=== PATIENT | female | born 1960 ===

== ENCOUNTER 2016-10-07 07:02 | Day surgery (SDC) | payer OTHER ==
[2016-10-07] MEDS ORDERED: Lactated Ringer's 500 ML IV ONE (07:38)
[2016-10-07] MEDS ORDERED: Midazolam 2 MG/2 ML VIAL ONE (07:47)
[2016-10-07] MEDS ORDERED: Propofol 10 mg/ml Inj (20 ML) ONE (07:47)
[2016-10-07 07:48] VITALS: BMI 32.5
[2016-10-07 08:57] VITALS: O2SAT 100
[2016-10-07 09:17] VITALS: BP 149/96; PULSE 78; RESP 18; TEMP 97.5
== END 2016-10-07 11:49 | disposition home or self-care (01) ==
LOC: H.ENDO 07:02
PROVIDERS: ATTEND Internal Medicine Gastroenterology
DX: K29.50 Unspecified chronic gastritis without bleeding (principal); K21.0 Gastro-esophageal reflux disease with esophagitis; K44.9 Diaphragmatic hernia without obstruction or gangrene

== ENCOUNTER 2016-10-13 15:32 | Observation (INO) | payer OTHER ==
[2016-10-13 15:33] VITALS: BMI 32.5
[2016-10-13 16:02] VITALS: O2SAT 98
[2016-10-13] MEDS ORDERED: Sodium Chloride 0.9% 1,000 ML IV STA (16:21)
--- NOTE | 2016-10-13 16:31 | ED PDOC ---
HPI: General Adult Time Seen by Provider: 10/13/16 16:11 Chief Complaint (Nursing): GI Problem History Per: Patient Additional Complaint(s): Pt. states since this morning she's had non-bloody/non-bilious vomiting (6 episodes) and non-bloody watery diarrhea (3 episodes) associated with epigastric and LUQ pain. Pt. states these symptoms are consistent with her IBS. She took her Prevacid without any relief. Of note, pt. states she saw Dr. Khan , GI, 2 weeks ago when she had an endoscopy but is still uncertain of the results. She has an appointment with Dr. Khan tomorrow. Denies fever, sick contacts, recent travel, hematemesis, hematochezia, BRBPR, chest pain, SOB. Past Medical History Reviewed: Historical Data, Nursing Documentation, Vital Signs Vital Signs: Last Vital Signs Temp 98.5 F 10/13/16 16:00 Pulse 105 H 10/13/16 16:00 Resp 18 10/13/16 16:00 BP 156/97 H 10/13/16 16:00 Pulse Ox 98 10/13/16 16:32 - Medical History PMH: Anxiety, Arthritis, Asthma, Bronchitis, COPD, Fibromyalgia, Migraine, Seizures Denies: HIV, Chronic Kidney Disease - Surgical History Surgical History: Tonsillectomy - Family History Family History: States: No Known Family Hx - Home Medications Home Medications: Ambulatory Orders Medication Instructions Recorded Fluticasone Furoate [Arnuity 200 mcg IH QAM 10/07/16 Ellipta] Fluticasone/Vilanterol [Breo 1 each IH DAILY 10/07/16 Ellipta 200-25 Mcg INH] Montelukast [Singulair] 10 mg PO HS 10/07/16 Tiotropium [place] Inhaler 1 puff INH DAILY 10/07/16 [Spiriva Inhalation Handihaler Device] - Allergies Allergies/Adverse Reactions: Allergies Allergy/AdvReac Type Severity Reaction Status Date / Time azelastine Allergy ANGIOEDEMA Verified 10/13/16 15:59 dexamethasone [From Decadron] Allergy SWELLING Verified 10/13/16 15:59 dexamethasone sod phosphate Allergy SWELLING Verified 10/13/16 15:59 [From Decadron] levofloxacin [From Levaquin] AdvReac DIARRHEA Verified 10/13/16 15:59 Review of Systems ROS Statement: Except As Marked, All Systems Reviewed And Found Negative Gastrointestinal: Positive for: Nausea, Vomiting, Abdominal Pain, Diarrhea Physical Exam - Reviewed Nursing Documentation Reviewed: Yes Vital Signs Reviewed: Yes - Physical Exam Appears: Positive for: Well, Non-toxic, No Acute Distress Head Exam: Positive for: ATRAUMATIC, NORMAL INSPECTION, NORMOCEPHALIC Skin: Positive for: Normal Color, Warm. Negative for: Rash Eye Exam: Positive for: EOMI, Normal appearance, PERRL ENT: Positive for: Normal ENT Inspection Neck: Positive for: Normal, Painless ROM Cardiovascular/Chest: Positive for: Regular Rate, Rhythm Respiratory: Positive for: CNT, Normal Breath Sounds Gastrointestinal/Abdominal: Positive for: Normal Exam, Bowel Sounds, Soft, Tenderness (epigastric and LUQ tenderness) Back: Positive for: Normal Inspection Extremity: Positive for: Normal ROM Neurologic/Psych: Positive for: Alert, Oriented - Laboratory Results Result Diagrams: 10/13/16 16:59 10/13/16 16:59 - ECG O2 Sat by Pulse Oximetry: 98 ED OBSERVATION Discharge: Yes Date of observation admission: 10/13/16 Time of observation admission: 16:32 - Observation admission statement Patient is being placed in observation because:: Abd Pain - Progress Note Progress Note: 10/13/16 16:32 Labs ordered. Pepcid 20mg IV, bentyl 20mg PO, zofran 4mg IV, IV NS bolus given. 10/13/16 18:54 CT abd/pelvis w/ IV contrast: Question mild small bowel wall thickening in the left upper quadrant, possibly enteritis. Urine culture sent. Mild to moderate constipation. 10/13/16 19:03 Case d/w Dr. Lorenzo, covering for Dr. Khan, who reviewed CT and labs as well and recommends outpt f/u with Dr. Khan tomorrow as previously scheduled and Miralax. Also states antibiotics are not necessary. Pt. informed of results and instructed to f/u as such. Reports feeling much better. Disposition - Clinical Impression Clinical Impression: Gastroenteritis, Constipation - Patient ED Disposition Is Patient to be Admitted: No - Disposition Disposition: Routine/Home Disposition Time: 19:05 Condition: IMPROVED
[2016-10-13 17:04] LABS: BASO % 0.2 % (0.0-2.0); EOS # 0.1 K/uL (0.0-0.7); EOS % 0.7 % (0.0-4.0); HEMOGLOBIN 14.6 g/dL (12.0-16.0); LYMPH # 0.8 K/uL (1.0-4.3); LYMPH % 9.1 % (20.0-40.0); MEAN CELL VOLUME 85.9 fl (81.0-99.0); MEAN CORPUSCULAR HEMOGLOBIN 28.1 pg (27.0-31.0); MEAN CORPUSCULAR HGB CONC 32.7 g/dL (33.0-37.0); MEAN PLATELET VOLUME 7.4 fl (7.2-11.7); MONO # 0.4 K/uL (0.0-0.8); NEUT # 7.1 K/uL (1.8-7.0); NRBC % 0.1 % (0.0-0.0); PLATELET COUNT 242 K/uL (130-400); RED CELL DISTRIBUTION WIDTH 13.4 % (11.5-14.5); WHITE BLOOD COUNT 8.4 K/uL (4.8-10.8)
[2016-10-13 17:11] LABS: SQUAMOUS EPITHIAL 3 /hpf (0-5); URINE BACTERIA RARE (<OCC); URINE BILIRUBIN NEGATIVE (NEGATIVE); URINE BLOOD NEGATIVE (NEGATIVE); URINE CLARITY SLIGHTY-CLOUDY (Clear); URINE COLOR YELLOW (YELLOW); URINE GLUCOSE (UA) NEG (Normal); URINE LEUKOCYTE ESTERASE SMALL Leu/uL (Negative); URINE NITRATE NEGATIVE (NEGATIVE); URINE PROTEIN NEGATIVE (NEGATIVE); URINE UROBILINOGEN 0.2-1.0 mg/dL (0.2-1.0)
[2016-10-13 17:24] LABS: ALB/GLOB RATIO 1.5 (1.0-2.1); ALBUMIN 4.7 g/dL (3.5-5.0); ALT/SGPT 46 U/L (9-52); AST/SGOT 25 U/L (14-36); BLOOD UREA NITROGEN 21 mg/dl (7-17); CALCIUM 9.5 mg/dL (8.4-10.2); GFR AFRICAN-AMERICAN > 60; GFR NON-AFRICAN AMERICAN > 60; LIPASE 156 U/L (23-300)
[2016-10-13] MEDS ORDERED: Iohexol 300 100 ML IJ ONE (17:33)
[2016-10-13] MEDS ORDERED: Sodium Chloride 0.9% 50 ML IV ONE (17:34)
[2016-10-13 18:26] LABS: ANISOCYTOSIS SLIGHT; LARGE PLATELETS PRESENT; LYMPHOCYTE 12 % (20-50); MONOCYTE 6 % (0-10); NEUTROPHIL 82 % (42-75); PLATELET ESTIMATE NORMAL (NORMAL); TOTAL CELLS COUNTED 100
--- NOTE | 2016-10-13 18:42 | CT ---
PROCEDURE: CT Abdomen and Pelvis with contrast HISTORY: LUQ and epigastric pain; vomiting, diarrhea COMPARISON: CT abdomen and pelvis without IV contrast performed 11/16/15 TECHNIQUE: Contrast dose: 90 mL Omnipaque 300 Radiation dose: Total exam DLP = 708.23 mGy-cm. This CT exam was performed using one or more of the following dose reduction techniques: Automated exposure control, adjustment of the mA and/or kV according to patient size, and/or use of iterative reconstruction technique. FINDINGS: LOWER THORAX: No visible consolidation, pleural effusion, or pneumothorax. Small hiatal hernia. LIVER: Unremarkable. GALLBLADDER AND BILE DUCTS: Unremarkable. PANCREAS: Unremarkable. SPLEEN: Unremarkable. ADRENALS: Unremarkable. KIDNEYS AND URETERS: The kidneys enhance symmetrically. No hydronephrosis or obstructing calculus identified. VASCULATURE: No aortic aneurysm. BOWEL: Stomach is nondistended. Lack of oral contrast limits evaluation for bowel pathology. Bowel loops appear within normal limits of caliber without evidence of obstruction. Question mild small bowel wall thickening in the left upper quadrant, possibly enteritis. APPENDIX: The appendix appears within normal limits of caliber. No secondary signs of acute appendicitis. PERITONEUM: No significant free fluid. No definite free air. LYMPH NODES: No bulky adenopathy identified. BLADDER: Thick-walled urinary bladder likely exaggerated by under distension. REPRODUCTIVE: The uterus is not identified, presumably due to hysterectomy. BONES: No acute osseous abnormality is detected. OTHER FINDINGS: 11 mm fat containing umbilical hernia. IMPRESSION: Question mild small bowel wall thickening in the left upper quadrant, possibly enteritis. Mild to moderate constipation. Additional findings as above.
[2016-10-13 19:30] VITALS: BP 153/84; PULSE 88; RESP 16; TEMP 98.2
== END 2016-10-13 19:30 | disposition home or self-care (01) ==
LOC: H.ER 15:32 → H.EROBSV 16:21
PROVIDERS: ADMIT Emergency Medicine; ATTEND Emergency Medicine
DX: K52.9 Noninfective gastroenteritis and colitis, unspecified (principal); J44.9 Chronic obstructive pulmonary disease, unspecified; M79.7 Fibromyalgia; F41.9 Anxiety disorder, unspecified; G43.909 Migraine, unspecified, not intractable, without status migrainosus; M19.90 Unspecified osteoarthritis, unspecified site; R56.9 Unspecified convulsions; K59.00 Constipation, unspecified

== ENCOUNTER 2017-06-29 18:18 | Observation (INO) | payer OTHER ==
[2017-06-29 18:19] VITALS: BMI 32.5
[2017-06-29] MEDS ORDERED: Phenylephrine 0.5% Nasal Spray NAS STA (19:24)
--- NOTE | 2017-06-29 20:14 | ED PDOC ---
HPI: CCC, URI, Sore Throat Time Seen by Provider: 06/29/17 19:25 Chief Complaint (Nursing): ENT Problem Chief Complaint (Provider): epistaxis History Per: Patient (56 y/o female h/o COPD/asthma here with nosebleed noted today uncontrolled. Denies any falls. States she has started prednisone taper for copd exacerabation and is on a number of inhalers to control breathing. Denies any fevers/chills.) Past Medical History Reviewed: Historical Data, Nursing Documentation, Vital Signs Vital Signs: Last Vital Signs Temp 97.6 F 06/29/17 18:56 Pulse 67 06/29/17 18:56 Resp 16 06/29/17 18:56 BP 130/109 H 06/29/17 18:56 Pulse Ox 98 06/29/17 20:17 - Medical History PMH: Anxiety, Arthritis, Asthma, Bronchitis, COPD, Fibromyalgia, Migraine, Seizures Denies: HIV, Chronic Kidney Disease - Surgical History Surgical History: Tonsillectomy - Family History Family History: States: Unknown Family Hx - Home Medications Home Medications: Ambulatory Orders Medication Instructions Recorded Fluticasone Furoate [Arnuity 200 mcg IH QAM 10/07/16 Ellipta] Fluticasone/Vilanterol [Breo 1 each IH DAILY 10/07/16 Ellipta 200-25 Mcg INH] Montelukast [Singulair] 10 mg PO HS 10/07/16 Tiotropium [place] Inhaler 1 puff INH DAILY 10/07/16 [Spiriva Inhalation Handihaler Device] Dicyclomine [Bentyl] 20 mg PO Q8 PRN #15 tab 10/13/16 Ondansetron ODT [Zofran ODT] 4 mg PO TID #20 odt 10/13/16 Polyethylene Glycol 3350 [Miralax] 17 gm PO DAILY PRN #30 powd.pack 10/13/16 - Allergies Allergies/Adverse Reactions: Allergies Allergy/AdvReac Type Severity Reaction Status Date / Time azelastine Allergy ANGIOEDEMA Verified 06/29/17 18:56 dexamethasone [From Decadron] Allergy SWELLING Verified 06/29/17 18:56 dexamethasone sod phosphate Allergy SWELLING Verified 06/29/17 18:56 [From Decadron] levofloxacin [From Levaquin] AdvReac DIARRHEA Verified 06/29/17 18:56 Review of Systems ROS Statement: Except As Marked, All Systems Reviewed And Found Negative Physical Exam - Reviewed Nursing Documentation Reviewed: Yes Vital Signs Reviewed: Yes - Physical Exam Appears: Positive for: Well, Non-toxic, No Acute Distress Head Exam: Positive for: ATRAUMATIC, NORMAL INSPECTION, NORMOCEPHALIC Skin: Positive for: Normal Color, Warm, DRY Eye Exam: Positive for: EOMI, Normal appearance, PERRL ENT: Positive for: Other (moderate bleeding from right nare with clots.). Negative for: Normal ENT Inspection Neck: Positive for: Normal, Painless ROM Cardiovascular/Chest: Positive for: Regular Rate, Rhythm Respiratory: Positive for: CNT, Normal Breath Sounds Gastrointestinal/Abdominal: Positive for: Normal Exam, Soft Back: Positive for: Normal Inspection Extremity: Positive for: Normal ROM Neurologic/Psych: Positive for: Alert, Oriented - ECG O2 Sat by Pulse Oximetry: 98 - Progress ED Course And Treament: case d/w Dr. Dasilva Disposition - Clinical Impression Clinical Impression: Epistaxis - Patient ED Disposition Is Patient to be Admitted: Transfer of Care - Disposition Disposition: Transfer of Care Disposition Time: 20:16 Condition: FAIR Forms: [employer] ([place]) Patient Signed Over To: Jazz Snow Handoff Comments: bloodwork - Pt Status Changed To: Hospital Disposition Of: Observation Procedure - Procedure and Findings -: verbal consent prior to procedure. neosynethrine soaked rhinorocket 7.5 cm placed in right nare. 4.5 cm rhinorocket placed in left nare with control of epistaxis Patient examined with DR. Romo d/w Family med resident for admission. Call placed to Dr. Dasilva
[2017-06-29 20:37] LABS: BASO % 0.3 % (0.0-2.0); EOS % 0.3 % (0.0-4.0); HEMOGLOBIN 13.9 g/dL (12.0-16.0); LYMPH # 2.2 K/uL (1.0-4.3); LYMPH % 18.8 % (20.0-40.0); MEAN CELL VOLUME 87.9 fl (81.0-99.0); MEAN CORPUSCULAR HEMOGLOBIN 28.4 pg (27.0-31.0); MEAN CORPUSCULAR HGB CONC 32.3 g/dL (33.0-37.0); MEAN PLATELET VOLUME 7.5 fl (7.2-11.7); MONO # 0.9 K/uL (0.0-0.8); MONO % 7.5 % (0.0-10.0); NEUT # 8.5 K/uL (1.8-7.0); NEUT % 73.1 % (50.0-75.0); RBC 4.87 Mil/uL (3.80-5.20); WHITE BLOOD COUNT 11.7 K/uL (4.8-10.8)
[2017-06-29 20:50] LABS: ALB/GLOB RATIO 1.2 (1.0-2.1); ALT/SGPT 72 U/L (9-52); AST/SGOT 29 U/L (14-36); BLOOD UREA NITROGEN 34 mg/dl (7-17); CALCIUM 9.7 mg/dL (8.4-10.2); GFR AFRICAN-AMERICAN > 60; GFR NON-AFRICAN AMERICAN > 60
[2017-06-29 21:15] LABS: PARTIAL THROMBOPLASTIN TIME 23.5 Seconds (25.6-37.1); PROTHROMBIN TIME 11.5 Seconds (9.8-13.1)
--- NOTE | 2017-06-29 22:03 | CP.PCM.HP ---
History of Present Illness - History of Present Illness History of Present Illness: 56 yo ,f, PMhx/o COPD, Asthma, Migraine, IBS, fibromyalgia present to ED c/o nose bleeding noticed today in the afternoon while patient was at work. Reports it started like right side nose bleeding and after left side at 12 pm lasting for 1 hour, that stop suddenly and it repeated again about 4pm, it did not stop by nose compression and decided to come to Ed. Patient denies hx/o epistaxis in the past, fever, recent URI infection, picking nose, chest pain, SOB,wheezing, headache, dizziness, n,v,d,abd pain, Fhx/o coagulopathy. Patient reports has been on prednisone treatment for 11 days, tapering dose, now on 20 mg. Patient also report scattered echimotic lesion on arms and legs that started while taking steroids. On evaluation patient in Ed, patient with b/l rhinorocket, no active bleeding now. Reports headache and nausea. PMD: Dr Snowden Child Care Lead Teacher: Dr. Dunn PMH: Asthma, IBS, Fibromyalgia, Cancer, Migraine PSH:Tonsilectomy, Hysterectomy, Cochlear tubectomy as per pt Allergy: Azelastine, Dexamethasone, Levaquin S/H: Denies ETOH,rect drugs,cig. Ed course VS : normal except BP: 130/109 repeated on my evaluation BP: 119/85 Labs: CBC : 11.7>13.9<295 CMP: BUN/Cr: 34/0.8 ALT: 72 Meds: neosynethrine soaked rhinorocket 7.5 cm placed in right nare. 4.5 cm rhinorocket placed in left nare with control of epistaxis ENT consulted Dr. Dasilva Present on Admission - Present on Admission Any Indicators Present on Admission: No History of DVT/PE: No History of Uncontrolled Diabetes: No Review of Systems - Review of Systems All systems: reviewed and no additional remarkable complaints except - EENT Nose/Mouth/Throat: Epistaxis - Gastrointestinal Gastrointestinal: Nausea - Neurological Neurological: Headaches Past Patient History - Infectious Disease Hx of Infectious Diseases: None - Past Medical History & Family History Past Medical History?: Yes - Past Social History Smoking Status: Never Smoked - CARDIAC Hx Cardiac Disorders: No - PULMONARY Hx Asthma: Yes Hx Bronchitis: Yes Hx Chronic Obstructive Pulmonary Disease (COPD): Yes - NEUROLOGICAL Hx Migraine: Yes Hx Seizures: Yes - HEENT Hx HEENT Problems: No - RENAL Hx Chronic Kidney Disease: No - ENDOCRINE/METABOLIC Hx Endocrine Disorders: No - HEMATOLOGICAL/ONCOLOGICAL Hx Human Immunodeficiency Virus (HIV): No - INTEGUMENTARY Hx Dermatological Problems: No - MUSCULOSKELETAL/RHEUMATOLOGICAL Hx Arthritis: Yes - GASTROINTESTINAL Hx Gastrointestinal Disorders: Yes Other/Comment: IBS - GENITOURINARY/GYNECOLOGICAL Hx Genitourinary Disorders: No - PSYCHIATRIC Hx Anxiety: Yes - SURGICAL HISTORY Hx Tonsillectomy: Yes - ANESTHESIA Hx Anesthesia: Yes Hx Anesthesia Reactions: Yes (VOMITING) Hx Malignant Hyperthermia: No Meds Allergies/Adverse Reactions: Allergies Allergy/AdvReac Type Severity Reaction Status Date / Time azelastine Allergy ANGIOEDEMA Verified 06/29/17 18:56 dexamethasone [From Decadron] Allergy SWELLING Verified 06/29/17 18:56 dexamethasone sod phosphate Allergy SWELLING Verified 06/29/17 18:56 [From Decadron] levofloxacin [From Levaquin] AdvReac DIARRHEA Verified 06/29/17 18:56 Physical Exam - Constitutional Appears: Non-toxic, No Acute Distress - Head Exam Head Exam: ATRAUMATIC, NORMOCEPHALIC - Eye Exam Eye Exam: Normal appearance - ENT Exam ENT Exam: Mucous Membranes Moist Additional comments: b/l nares with rhinorocket in place secondary to epistaxis pharynx normal. no active bleeding seen - Neck Exam Neck exam: Positive for: Normal Inspection - Respiratory Exam Respiratory Exam: Clear to Auscultation Bilateral. absent: Rales, Wheezes - Cardiovascular Exam Cardiovascular Exam: REGULAR RHYTHM, +S1, +S2 - GI/Abdominal Exam GI & Abdominal Exam: Normal Bowel Sounds, Soft. absent: Guarding, Rebound - Extremities Exam Extremities exam: Positive for: normal inspection. Negative for: pedal edema - Neurological Exam Neurological exam: Alert, Oriented x3 - Psychiatric Exam Psychiatric exam: Normal Affect, Normal Mood - Skin Skin Exam: Rash (multiple echimotic lesions scattered over arms and legs [id number] ) Results - Vital Signs Recent Vital Signs: Last Vital Signs Temp 97.6 F 06/29/17 18:56 Pulse 102 H 06/29/17 21:00 Resp 13 06/29/17 21:00 BP 153/89 H 06/29/17 21:00 Pulse Ox 98 06/29/17 20:23 - Labs Result Diagrams: 06/29/17 20:15 06/29/17 20:15 Labs: Laboratory Results - last 24 hr 06/29/17 06/29/17 06/29/17 20:15 20:15 20:15 WBC 11.7 H RBC 4.87 Hgb 13.9 Hct 42.9 MCV 87.9 D MCH 28.4 MCHC 32.3 L RDW 15.0 H Plt Count 295 MPV 7.5 Neut % (Auto) 73.1 Lymph % (Auto) 18.8 L [place] % (Auto) 7.5 Eos % (Auto) 0.3 Baso % (Auto) 0.3 Neut # (Auto) 8.5 H Lymph # (Auto) 2.2 [place] # (Auto) 0.9 H Eos # (Auto) 0.0 Baso # (Auto) 0.0 PT INR APTT Sodium 142 Potassium 4.8 Chloride 101 Carbon Dioxide 29 Anion Gap 17 BUN 34 H Creatinine 0.8 Est GFR ( Amer) > 60 Est GFR (Non-Af Amer) > 60 Random Glucose 145 H Calcium 9.7 Total Bilirubin 0.5 AST 29 ALT 72 H D Alkaline Phosphatase 70 Total Protein 7.3 Albumin 4.0 Globulin 3.2 Albumin/Globulin Ratio 1.2 BBK History Checked No verified bt 06/29/17 20:55 WBC RBC Hgb Hct MCV MCH MCHC RDW Plt Count MPV Neut % (Auto) Lymph % (Auto) [place] % (Auto) Eos % (Auto) Baso % (Auto) Neut # (Auto) Lymph # (Auto) [place] # (Auto) Eos # (Auto) Baso # (Auto) PT 11.5 INR 1.0 APTT 23.5 L Sodium Potassium Chloride Carbon Dioxide Anion Gap BUN Creatinine Est GFR ( Amer) Est GFR (Non-Af Amer) Random Glucose Calcium Total Bilirubin AST ALT Alkaline Phosphatase Total Protein Albumin Globulin Albumin/Globulin Ratio BBK History Checked Assessment & Plan - Assessment and Plan (Free Text) Plan: 56 yo ,f, PMhx/o COPD, Asthma, Migraine, IBS, fibromyalgia admitted for b/l epistaxis first episode while on treatment with steroids Assessment/Plan 1) Bilateral epistaxis -acute, first episode -platelets and coags normal - neosynethrine soaked rhinorocket 7.5 cm placed in right nare. -4.5 cm rhinorocket placed in left nare with control of epistaxis -ENT consulted Dr. 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
[2017-06-30] MEDS: Sodium Chloride 0.9% 1,000 ML IV SCH ×2 (00:17→08:46)
[2017-06-30] MEDS: Oxycodone/Acetaminophen 5/325 mg Tab PO PRN ×2 (00:45→00:49)
[2017-06-30 06:03] LABS: BASO % 0.2 % (0.0-2.0); EOS % 0.1 % (0.0-4.0); HEMOGLOBIN 12.4 g/dL (12.0-16.0); LYMPH # 1.3 K/uL (1.0-4.3); LYMPH % 12.2 % (20.0-40.0); MEAN CELL VOLUME 87.1 fl (81.0-99.0); MEAN CORPUSCULAR HEMOGLOBIN 28.6 pg (27.0-31.0); MEAN CORPUSCULAR HGB CONC 32.8 g/dL (33.0-37.0); MEAN PLATELET VOLUME 7.1 fl (7.2-11.7); MONO # 0.6 K/uL (0.0-0.8); MONO % 5.2 % (0.0-10.0); NEUT # 8.9 K/uL (1.8-7.0); NEUT % 82.3 % (50.0-75.0); RBC 4.34 Mil/uL (3.80-5.20); RED CELL DISTRIBUTION WIDTH 14.9 % (11.5-14.5); WHITE BLOOD COUNT 10.8 K/uL (4.8-10.8)
[2017-06-30 06:29] LABS: INR 1.1 (0.9-1.2); PARTIAL THROMBOPLASTIN TIME 24.5 Seconds (25.6-37.1); PROTHROMBIN TIME 11.9 Seconds (9.8-13.1)
[2017-06-30 06:36] LABS: ALB/GLOB RATIO 1.3 (1.0-2.1); ALBUMIN 3.4 g/dL (3.5-5.0); ALT/SGPT 62 U/L (9-52); AST/SGOT 24 U/L (14-36); BLOOD UREA NITROGEN 27 mg/dl (7-17); CALCIUM 8.6 mg/dL (8.4-10.2); GFR AFRICAN-AMERICAN > 60; GFR NON-AFRICAN AMERICAN > 60
--- NOTE | 2017-06-30 08:59 | CARD ---
APPROVED REPORT EKG Measurement Heart [id number] <Conclusion> Sinus rhythm Left axis deviation Abnormal ECG Too much artefact
[2017-06-30] MEDS: Tiotropium 18 mcg Cap For Inhalation INH SCH ×2 (11:36→11:41)
[2017-06-30] MEDS ORDERED: VILANTEROL IH SCH (11:45)
[2017-06-30] MEDS ORDERED: FLUTICASONE IH SCH (11:45)
[2017-06-30] MEDS ORDERED: Albuterol HFA 90 mcg/actuation (8 g) IH PRN (11:45)
[2017-06-30 12:04] VITALS: PULSE 85
[2017-06-30 12:43] VITALS: O2SAT 95
[2017-06-30 12:48] LABS: HEMOGLOBIN 13.1 g/dL (12.0-16.0); MEAN CELL VOLUME 86.7 fl (81.0-99.0); MEAN CORPUSCULAR HEMOGLOBIN 28.8 pg (27.0-31.0); MEAN CORPUSCULAR HGB CONC 33.2 g/dL (33.0-37.0); RBC 4.54 Mil/uL (3.80-5.20); WHITE BLOOD COUNT 11.4 K/uL (4.8-10.8)
[2017-06-30] MEDS ORDERED: Glucagon Recombinant 1 mg Inj IM PRN (13:30)
[2017-06-30] MEDS ORDERED: Dextrose 50% SYRINGE Inj (50 ml) IV PRN (13:30)
[2017-06-30 16:12] VITALS: BP 135/84; RESP 18; TEMP 98.3
--- NOTE | 2017-06-30 16:13 | CP.PCM.DIS ---
<Lissett Murillo - Last Filed: 06/30/17 16:24> Provider - Provider Date of Admission: 06/29/17 20:17 Attending physician: Charles Win MD Time Spent in preparation of Discharge (in minutes): 30 Diagnosis - Discharge Diagnosis (1) Epistaxis Status: Resolved Hospital Course - Lab Results Lab Results: Most Recent Lab Values WBC 11.4 K/uL (4.8-10.8) H 06/30/17 12:43 RBC 4.54 Mil/uL (3.80-5.20) 06/30/17 12:43 Hgb 13.1 g/dL (12.0-16.0) 06/30/17 12:43 Hct 39.4 % (34.0-47.0) 06/30/17 12:43 MCV 86.7 fl (81.0-99.0) 06/30/17 12:43 MCH 28.8 pg (27.0-31.0) 06/30/17 12:43 MCHC 33.2 g/dL (33.0-37.0) 06/30/17 12:43 RDW 15.0 % (11.5-14.5) H 06/30/17 12:43 Plt Count 244 K/uL (130-400) 06/30/17 12:43 MPV 7.1 fl (7.2-11.7) L 06/30/17 05:40 Neut % (Auto) 82.3 % (50.0-75.0) H 06/30/17 05:40 Lymph % (Auto) 12.2 % (20.0-40.0) L 06/30/17 05:40 [place] % (Auto) 5.2 % (0.0-10.0) 06/30/17 05:40 Eos % (Auto) 0.1 % (0.0-4.0) 06/30/17 05:40 Baso % (Auto) 0.2 % (0.0-2.0) 06/30/17 05:40 Neut # (Auto) 8.9 K/uL (1.8-7.0) H 06/30/17 05:40 Lymph # (Auto) 1.3 K/uL (1.0-4.3) 06/30/17 05:40 [place] # (Auto) 0.6 K/uL (0.0-0.8) 06/30/17 05:40 Eos # (Auto) 0.0 K/uL (0.0-0.7) 06/30/17 05:40 Baso # (Auto) 0.0 K/uL (0.0-0.2) 06/30/17 05:40 PT 11.9 Seconds (9.8-13.1) 06/30/17 05:40 INR 1.1 (0.9-1.2) 06/30/17 05:40 APTT 24.5 Seconds (25.6-37.1) L 06/30/17 05:40 Sodium 142 mmol/l (132-148) 06/30/17 05:40 Potassium 4.2 MMOL/L (3.6-5.0) 06/30/17 05:40 Chloride 102 mmol/L (98-107) 06/30/17 05:40 Carbon Dioxide 30 mmol/L (22-30) 06/30/17 05:40 Anion Gap 14 (10-20) 06/30/17 05:40 BUN 27 mg/dl (7-17) H 06/30/17 05:40 Creatinine 0.7 mg/dl (0.7-1.2) 06/30/17 05:40 Est GFR ( Amer) > 60 06/30/17 05:40 Est GFR (Non-Af Amer) > 60 06/30/17 05:40 Random Glucose 139 mg/dL (65-105) H 06/30/17 05:40 Calcium 8.6 mg/dL (8.4-10.2) 06/30/17 05:40 Total Bilirubin 0.7 mg/dl (0.2-1.3) 06/30/17 05:40 AST 24 U/L (14-36) 06/30/17 05:40 ALT 62 U/L (9-52) H 06/30/17 05:40 Alkaline Phosphatase 58 U/L (38-126) 06/30/17 05:40 Total Protein 6.1 G/DL (6.3-8.2) L 06/30/17 05:40 Albumin 3.4 g/dL (3.5-5.0) L 06/30/17 05:40 Globulin 2.7 gm/dL (2.2-3.9) 06/30/17 05:40 Albumin/Globulin Ratio 1.3 (1.0-2.1) 06/30/17 05:40 Blood Type O POSITIVE 06/29/17 20:15 Antibody Screen Negative 06/29/17 20:15 BBK History Checked No verified bt 06/29/17 20:15 - Hospital Course Hospital Course: 56 yo F PMhx/o COPD, Asthma, Migraine, IBS, fibromyalgia admitted due to intractable epistaxis x 1 day. Patient denies hx/o epistaxis in the past,recent URI infection, Fhx/o coagulopathy or injury. Patient reports has been on prednisone treatment for 11 days as per Pulmonology. On ED evaluation patient received neosynethrine soaked rhinorocket 7.5 cm placed in right nare and 4.5 cm rhinorocket placed in left nare with control of epistaxis, no active bleeding noted during stay. Labs stable H/H 13.1/39.4, PT/INR 11.9/1.1. ENT Dr Dasilva consulted. Patient was discharged home safely with packing in place, f/u instructions with Dr Win and Dr Dasilva this Tuesday. Amoxicilin script provided to complete 7 days. Discharge Exam - Head Exam Head Exam: NORMAL INSPECTION - Eye Exam Eye Exam: EOMI, PERRL - ENT Exam ENT Exam: Mucous Membranes Dry Additional comments: b/l nares with rhinorocket in place, pharynx normal. no active bleeding seen - Respiratory Exam Respiratory Exam: Clear to PA & Lateral, NORMAL BREATHING PATTERN. absent: Wheezes - Cardiovascular Exam Cardiovascular Exam: REGULAR RHYTHM, +S1, +S2. absent: Tachycardia - GI/Abdominal Exam GI & Abdominal Exam: Normal Bowel Sounds, Soft. absent: Tenderness - Neurological Exam Neurological exam: Alert, CN II-XII Intact, Normal Gait, Oriented x3 - Skin Additional comments: Rash (multiple echimotic lesions scattered over arms and legs [id number] ) Discharge Plan - Discharge Medications Prescriptions: Acetaminophen [Tylenol 325mg tab] 650 mg PO Q6 7 Days #30 tab Amoxicillin [Amoxil 500 mg Cap] 500 mg PO Q8H 7 Days #21 cap - Follow Up Plan Condition: FAIR Disposition: HOME/ ROUTINE Instructions: Nosebleeds (DC) Additional Instructions: Pt. to make an appointment for ENT Dr. Dasilva on Tuesday. Thank You. follow up appt (walking appt ) with on tuesday07/02/17 8:40am Referrals: Martin Dasilva MD [Staff Provider] - Charles Win MD [Family Provider] - <Avery Funes - Last Filed: 07/01/17 06:50> Provider - Provider Date of Admission: 06/29/17 20:17 Attending physician: Charles Win MD Hospital Course - Lab Results Lab Results: Most Recent Lab Values WBC 11.4 K/uL (4.8-10.8) H 06/30/17 12:43 RBC 4.54 Mil/uL (3.80-5.20) 06/30/17 12:43 Hgb 13.1 g/dL (12.0-16.0) 06/30/17 12:43 Hct 39.4 % (34.0-47.0) 06/30/17 12:43 MCV 86.7 fl (81.0-99.0) 06/30/17 12:43 MCH 28.8 pg (27.0-31.0) 06/30/17 12:43 MCHC 33.2 g/dL (33.0-37.0) 06/30/17 12:43 RDW 15.0 % (11.5-14.5) H 06/30/17 12:43 Plt Count 244 K/uL (130-400) 06/30/17 12:43 MPV 7.1 fl (7.2-11.7) L 06/30/17 05:40 Neut % (Auto) 82.3 % (50.0-75.0) H 06/30/17 05:40 Lymph % (Auto) 12.2 % (20.0-40.0) L 06/30/17 05:40 [place] % (Auto) 5.2 % (0.0-10.0) 06/30/17 05:40 Eos % (Auto) 0.1 % (0.0-4.0) 06/30/17 05:40 Baso % (Auto) 0.2 % (0.0-2.0) 06/30/17 05:40 Neut # (Auto) 8.9 K/uL (1.8-7.0) H 06/30/17 05:40 Lymph # (Auto) 1.3 K/uL (1.0-4.3) 06/30/17 05:40 [place] # (Auto) 0.6 K/uL (0.0-0.8) 06/30/17 05:40 Eos # (Auto) 0.0 K/uL (0.0-0.7) 06/30/17 05:40 Baso # (Auto) 0.0 K/uL (0.0-0.2) 06/30/17 05:40 PT 11.9 Seconds (9.8-13.1) 06/30/17 05:40 INR 1.1 (0.9-1.2) 06/30/17 05:40 APTT 24.5 Seconds (25.6-37.1) L 06/30/17 05:40 Sodium 142 mmol/l (132-148) 06/30/17 05:40 Potassium 4.2 MMOL/L (3.6-5.0) 06/30/17 05:40 Chloride 102 mmol/L (98-107) 06/30/17 05:40 Carbon Dioxide 30 mmol/L (22-30) 06/30/17 05:40 Anion Gap 14 (10-20) 06/30/17 05:40 BUN 27 mg/dl (7-17) H 06/30/17 05:40 Creatinine 0.7 mg/dl (0.7-1.2) 06/30/17 05:40 Est GFR ( Amer) > 60 06/30/17 05:40 Est GFR (Non-Af Amer) > 60 06/30/17 05:40 Random Glucose 139 mg/dL (65-105) H 06/30/17 05:40 Calcium 8.6 mg/dL (8.4-10.2) 06/30/17 05:40 Total Bilirubin 0.7 mg/dl (0.2-1.3) 06/30/17 05:40 AST 24 U/L (14-36) 06/30/17 05:40 ALT 62 U/L (9-52) H 06/30/17 05:40 Alkaline Phosphatase 58 U/L (38-126) 06/30/17 05:40 Total Protein 6.1 G/DL (6.3-8.2) L 06/30/17 05:40 Albumin 3.4 g/dL (3.5-5.0) L 06/30/17 05:40 Globulin 2.7 gm/dL (2.2-3.9) 06/30/17 05:40 Albumin/Globulin Ratio 1.3 (1.0-2.1) 06/30/17 05:40 Blood Type O POSITIVE 06/29/17 20:15 Antibody Screen Negative 06/29/17 20:15 BBK History Checked No verified bt 06/29/17 20:15 Attending/Attestation - Attestation I have personally seen and examined this patient.: Yes I have fully participated in the care of the patient.: Yes I have reviewed all pertinent clinical information, including history, physical exam and plan: Yes
[2017-06-30] MEDS ORDERED: Insulin Regular 100 units/ml SC SCH (16:30)
[2017-06-30] MEDS ORDERED: ceFAZolin 1 GM in Sodium Chloride 0.9% 100 ML IVPB SCH (17:00)
[2017-06-30] MEDS ORDERED: SPIRIVA RESPIMAT INH SCH (17:00)
== END 2017-06-30 17:30 | disposition home or self-care (01) ==
LOC: H.ER 18:18 → H.ERHOLD 20:17 → H.TEL 22:59
PROVIDERS: ADMIT Family Medicine; ATTEND Family Medicine
DX: R04.0 Epistaxis (principal); R03.0 Elevated blood-pressure reading, without diagnosis of hypertension; R11.0 Nausea; G43.909 Migraine, unspecified, not intractable, without status migrainosus; M79.7 Fibromyalgia; J44.9 Chronic obstructive pulmonary disease, unspecified; K58.9 Irritable bowel syndrome, unspecified; F41.9 Anxiety disorder, unspecified; M19.90 Unspecified osteoarthritis, unspecified site
CPT/HCPCS: 30901; 36415; 80053; 85025; 85027; 85610; 85730; 86850; 86900; 93005; 96374; 99285; G0378; J0690; J2270; J2405; J7040

== ENCOUNTER 2017-10-11 07:20 | Day surgery (SDC) | payer OTHER ==
[2017-10-11] MEDS ORDERED: Lactated Ringer's 500 ML IV ONE (07:37)
[2017-10-11] MEDS ORDERED: Midazolam 2 MG/2 ML VIAL ONE (08:10)
[2017-10-11] MEDS ORDERED: Propofol 10 mg/ml Inj (20 ML) ONE (08:11)
[2017-10-11 08:43] VITALS: TEMP 97; O2SAT 100
[2017-10-11 08:58] VITALS: BP 122/71; PULSE 86; RESP 15
== END 2017-10-11 10:00 | disposition home or self-care (01) ==
LOC: H.ENDO 07:20
PROVIDERS: ATTEND Internal Medicine Gastroenterology
DX: K29.50 Unspecified chronic gastritis without bleeding (principal); K20.9 Esophagitis, unspecified; K44.9 Diaphragmatic hernia without obstruction or gangrene; R13.19 Other dysphagia; J44.9 Chronic obstructive pulmonary disease, unspecified
CPT/HCPCS: 43239; 88305; 88312; 88342; J2001; J2250; J2704; J7120

== ENCOUNTER 2017-10-26 14:27 | Emergency (ER) | payer OTHER ==
[2017-10-26 14:27] VITALS: BMI 32.5
[2017-10-26 14:40] VITALS: RESP 20; TEMP 98.6
[2017-10-26] MEDS ORDERED: Albuterol-Ipratrop 3 mg / 0.5 (3 ml) UD IH STA (14:50)
--- NOTE | 2017-10-26 15:08 | ED PDOC ---
HPI: SOB/CHF/COPD Time Seen by Provider: 10/26/17 14:38 Chief Complaint (Nursing): Shortness Of Breath Chief Complaint (Provider): Shortness of breath History Per: Patient History/Exam Limitations: no limitations Onset/Duration Of Symptoms: Days (x3), Worse Since Current Symptoms Are (Timing): Still Present Associated Symptoms: Other (nonproductive cough) Additional Complaint(s): Susy Lopez, a 56 year old female with past medical history of asthma, presents to the emergency department with shortness of breath associated with a nonproductive cough. Patient states that symptoms have gotten worse the past 3 days. She reports no improvement of symptoms with use of nebulizer at home or PO Prednisone. Patient denies fever, chills or chest pain. No further medical complaints. PMD: Charles Win Past Medical History Reviewed: Historical Data, Nursing Documentation, Vital Signs Vital Signs: Last Vital Signs Temp 98.6 F 10/26/17 14:38 Pulse 112 H 10/26/17 14:38 Resp 20 10/26/17 15:40 BP 155/106 H 10/26/17 14:38 Pulse Ox 99 10/26/17 17:27 - Medical History PMH: Anxiety, Arthritis, Asthma (LAST ATTACK ONE MONTH AGO), Bronchitis, COPD, Fibromyalgia, HTN, Hypercholesterolemia, Migraine, Seizures Denies: HIV, Chronic Kidney Disease - Surgical History Surgical History: Endoscopy, Tonsillectomy - Family History Family History: States: Unknown Family Hx - Social History Current smoker - smoking cessation education provided: No Alcohol: None - Home Medications Home Medications: Ambulatory Orders Medication Instructions Recorded Fluticasone Furoate [Arnuity 200 mcg IH QAM 10/07/16 Ellipta] Fluticasone/Vilanterol [Breo 1 each IH DAILY 10/07/16 Ellipta 200-25 Mcg INH] Montelukast [Singulair] 10 mg PO DAILY 10/07/16 Albuterol HFA [Ventolin HFA 90 1 inh IN DAILY PRN 06/29/17 mcg/actuation (8 g)] Epinephrine [Epipen] 0.3 mg IJ ONCE PRN 06/29/17 Hydrochlorothiazide [Microzide] 12.5 mg PO DAILY 06/29/17 Levocetirizine Dihydrochloride 5 mg PO BID 06/29/17 [Xyzal] Ranitidine HCl [Zantac] 150 mg PO BID 06/29/17 Simvastatin [Zocor] 20 mg PO DAILY 06/29/17 Zolpidem [Ambien] 10 mg PO HS 06/29/17 amLODIPine [Norvasc] 5 mg PO DAILY 06/29/17 Albuterol Sulfate 4 mg PO Q12 #14 tab.er.12h 10/26/17 - Allergies Allergies/Adverse Reactions: Allergies Allergy/AdvReac Type Severity Reaction Status Date / Time azelastine Allergy ANGIOEDEMA Verified 06/29/17 18:56 dexamethasone [From Decadron] Allergy SWELLING Verified 06/29/17 18:56 dexamethasone sod phosphate Allergy SWELLING Verified 06/29/17 18:56 [From Decadron] levofloxacin [From Levaquin] AdvReac DIARRHEA Verified 06/29/17 18:56 Review of Systems ROS Statement: Except As Marked, All Systems Reviewed And Found Negative Constitutional: Negative for: Fever, Chills Cardiovascular: Negative for: Chest Pain Respiratory: Positive for: Cough (nonproductive), Shortness of Breath Physical Exam - Reviewed Nursing Documentation Reviewed: Yes Vital Signs Reviewed: Yes - Physical Exam Appears: Positive for: Non-toxic, No Acute Distress Head Exam: Positive for: ATRAUMATIC, NORMAL INSPECTION, NORMOCEPHALIC Skin: Positive for: Normal Color, Warm, Dry Eye Exam: Positive for: EOMI, Normal appearance, PERRL Neck: Positive for: Normal, Painless ROM Cardiovascular/Chest: Positive for: Tachycardia Respiratory: Positive for: Rhonchi (scattered). Negative for: Wheezing, Respiratory Distress Gastrointestinal/Abdominal: Positive for: Normal Exam, Soft. Negative for: Tenderness Back: Positive for: Normal Inspection Extremity: Positive for: Normal ROM (upper and lower extremities). Negative for : Calf Tenderness, Swelling Neurologic/Psych: Positive for: Alert, Oriented - Laboratory Results Result Diagrams: 10/26/17 15:29 10/26/17 15:29 - ECG O2 Sat by Pulse Oximetry: 99 (RA) Pulse Ox Interpretation: Normal Medical Decision Making Medical Decision Making: Time: 14:38 Initial Plan: --CMP --CBC w/ differential --D dimer --Chest xray 2 view --Albuterol 3 ml IH --Methylprednisolone 125 mg IVP --Blood culture --Peak flow pre/post Time: 17:18 Chest X Ray FINDINGS: LUNGS: No evidence of new infiltrate or consolidation in the lungs. PLEURA: No significant pleural effusion identified. No pneumothorax apparent. CARDIOVASCULAR: Normal. OSSEOUS STRUCTURES: No significant abnormalities. VISUALIZED UPPER ABDOMEN: Normal. OTHER FINDINGS: None. IMPRESSION: No active disease. Scribe Attestation: Documented by Karissa Simmons, acting as a scribe for Robbie Burns MD. Provider Scribe Attestation: All medical record entries made by the Scribe were at my direction and personally dictated by me. I have reviewed the chart and agree that the record accurately reflects my personal performance of the history, physical exam, medical decision making, and the department course for this patient. I have also personally directed, reviewed, and agree with the discharge instructions and disposition. Disposition - Clinical Impression Clinical Impression: Asthma - Patient ED Disposition Is Patient to be Admitted: No - Disposition Referrals: Devonte Dunn MD [Staff Provider] - Disposition: Routine/Home Disposition Time: 17:44 Condition: FAIR Prescriptions: Albuterol Sulfate 4 mg PO Q12 #14 tab.er.12h Instructions: Asthma in Adults Forms: [employer] (Irish)
[2017-10-26] MEDS ORDERED: Albuterol-Ipratrop 3 mg / 0.5 (3 ml) UD ONE (15:27)
[2017-10-26 15:39] LABS: BASO # 0.1 K/uL (0.0-0.2); BASO % 0.4 % (0.0-2.0); EOS # 0.1 K/uL (0.0-0.7); EOS % 0.5 % (0.0-4.0); HEMOGLOBIN 14.1 g/dL (12.0-16.0); LYMPH # 1.7 K/uL (1.0-4.3); LYMPH % 14.9 % (20.0-40.0); MEAN CELL VOLUME 83.6 fl (81.0-99.0); MEAN CORPUSCULAR HEMOGLOBIN 27.5 pg (27.0-31.0); MEAN CORPUSCULAR HGB CONC 32.9 g/dL (33.0-37.0); MEAN PLATELET VOLUME 7.6 fl (7.2-11.7); MONO # 0.7 K/uL (0.0-0.8); MONO % 6.5 % (0.0-10.0); NEUT # 8.8 K/uL (1.8-7.0); NEUT % 77.7 % (50.0-75.0); NRBC % 0.1 % (0.0-0.0); RBC 5.13 Mil/uL (3.80-5.20); RED CELL DISTRIBUTION WIDTH 15.4 % (11.5-14.5); WHITE BLOOD COUNT 11.4 K/uL (4.8-10.8)
[2017-10-26 16:09] LABS: CALCIUM 9.8 mg/dL (8.4-10.2); GFR AFRICAN-AMERICAN > 60; GFR NON-AFRICAN AMERICAN > 60
[2017-10-26 16:23] LABS: INR 1.1
[2017-10-26 16:28] LABS: ALB/GLOB RATIO 1.2 (1.0-2.1); ALBUMIN 5.1 g/dL (3.5-5.0); ALT/SGPT 24 U/L (9-52); AST/SGOT 57 U/L (14-36); BLOOD UREA NITROGEN 20 mg/dl (7-17)
--- NOTE | 2017-10-26 17:20 | RAD ---
Date of service: 10/26/2017 HISTORY: SOB COMPARISON: Comparison is made with 03/16/2017 TECHNIQUE: Chest PA and lateral FINDINGS: LUNGS: No evidence of new infiltrate or consolidation in the lungs. PLEURA: No significant pleural effusion identified. No pneumothorax apparent. CARDIOVASCULAR: Normal. OSSEOUS STRUCTURES: No significant abnormalities. VISUALIZED UPPER ABDOMEN: Normal. OTHER FINDINGS: None. IMPRESSION: No active disease.
[2017-10-26 18:08] VITALS: BP 143/90; PULSE 90; O2SAT 97
[2017-10-27 13:45] LABS: PARTIAL THROMBOPLASTIN TIME 34.8 Seconds (25.6-37.1); PROTHROMBIN TIME 11.9 Seconds (9.8-13.1)
== END 2017-10-26 18:08 | disposition home or self-care (01) ==
LOC: H.ER 14:27
DX: J45.909 Unspecified asthma, uncomplicated (principal); E78.00 Pure hypercholesterolemia, unspecified; F41.9 Anxiety disorder, unspecified; I10 Essential (primary) hypertension; J44.9 Chronic obstructive pulmonary disease, unspecified; M79.7 Fibromyalgia
CPT/HCPCS: 71046; 80053; 85025; 85378; 85610; 85730; 87040; 94150; 94640; 96374; 99284; J2930

== ENCOUNTER 2018-05-22 09:30 | Observation (INO) | payer OTHER ==
[2018-05-22] MEDS ORDERED: Albuterol-Ipratrop 3 mg / 0.5 (3 ml) UD INH STA (10:37)
[2018-05-22] MEDS ORDERED: Albuterol-Ipratrop 3 mg / 0.5 (3 ml) UD ONE (10:55)
[2018-05-22 11:02] LABS: BASO % 0.2 % (0.0-2.0); HEMOGLOBIN 14.6 g/dL (12.0-16.0); LYMPH # 0.8 K/uL (1.0-4.3); LYMPH % 5.9 % (20.0-40.0); MEAN CELL VOLUME 79.9 fl (81.0-99.0); MEAN CORPUSCULAR HEMOGLOBIN 25.8 pg (27.0-31.0); MEAN CORPUSCULAR HGB CONC 32.3 g/dL (33.0-37.0); MEAN PLATELET VOLUME 7.4 fl (7.2-11.7); MONO # 0.6 K/uL (0.0-0.8); MONO % 4.1 % (0.0-10.0); NEUT % 89.8 % (50.0-75.0); PLATELET COUNT 381 K/uL (130-400); RBC 5.66 Mil/uL (3.80-5.20); RED CELL DISTRIBUTION WIDTH 16.3 % (11.5-14.5); WHITE BLOOD COUNT 14.4 K/uL (4.8-10.8)
[2018-05-22 11:03] LABS: BLOOD UREA NITROGEN 26 mg/dl (7-17); CALCIUM 9.8 mg/dL (8.4-10.2); GFR NON-AFRICAN AMERICAN > 60
[2018-05-22 11:15] LABS: B-TYPE NATRIURETIC PEPTIDE 52.6 pg/ml (0-900)
--- NOTE | 2018-05-22 11:35 | ED PDOC ---
HPI: Influenza Time Seen by Provider: 05/22/18 10:17 Chief Complaint: Cough, Cold, Congestion Past Medical History Vital Signs: Last Vital Signs Temp 99.3 F 05/22/18 09:32 Pulse 107 H 05/22/18 09:32 Resp 18 05/22/18 09:32 BP 145/92 H 05/22/18 09:32 Pulse Ox 99 05/22/18 09:32 - Medical History PMH: Anxiety, Arthritis, Asthma (LAST ATTACK ONE MONTH AGO), Bronchitis, COPD, Fibromyalgia, HTN, Hypercholesterolemia, Migraine, Seizures Denies: HIV, Chronic Kidney Disease - Surgical History Surgical History: Endoscopy, Tonsillectomy - Family History Family History: States: Unknown Family Hx - Home Medications Home Medications: Ambulatory Orders Medication Instructions Recorded Fluticasone Furoate [Arnuity 1 puff IH DAILY 10/07/16 Ellipta] Fluticasone/Vilanterol [Breo 1 puff IH DAILY 10/07/16 Ellipta 200-25 Mcg INH] Montelukast [Singulair] 10 mg PO HS 10/07/16 Hydrochlorothiazide [Microzide] 12.5 mg PO DAILY 06/29/17 Levocetirizine Dihydrochloride 10 mg PO HS 06/29/17 [Xyzal] Simvastatin [Zocor] 20 mg PO QPM 06/29/17 Zolpidem [Ambien] 10 mg PO HS 06/29/17 amLODIPine [Norvasc] 5 mg PO DAILY 06/29/17 Albuterol Sulfate [Proventil] 2 mg PO TID 05/22/18 Alprazolam [Xanax] 0.5 mg PO HS PRN 05/22/18 Cholecalciferol [Vitamin D 1000 IU] 1,000 unit PO DAILY 05/22/18 Methocarbamol [Robaxin] 500 mg PO Q12 PRN 05/22/18 Polyethylene Glycol 3350 [Miralax] 17 gm PO BID 05/22/18 Tiotropium [place] [Spiriva 2 puff IH DAILY 05/22/18 Respimat] predniSONE [predniSONE Tab] 10 mg PO DAILY 05/22/18 - Allergies Allergies/Adverse Reactions: Allergies Allergy/AdvReac Type Severity Reaction Status Date / Time azelastine Allergy ANGIOEDEMA Verified 06/29/17 18:56 dexamethasone [From Decadron] Allergy SWELLING Verified 06/29/17 18:56 dexamethasone sod phosphate Allergy SWELLING Verified 06/29/17 18:56 [From Decadron] levofloxacin [From Levaquin] AdvReac DIARRHEA Verified 06/29/17 18:56 - Laboratory Results Result Diagrams: 05/22/18 10:45 05/22/18 10:45 Lab Results: Troponin I < 0.0120 ng/mL (0.00-0.120) 05/22/18 10:45 NT-Pro-B Natriuret Pep 52.6 pg/ml (0-900) 05/22/18 10:45 - ECG O2 Sat by Pulse Oximetry: 99 Disposition - Disposition
[2018-05-22 11:42] LABS: LYMPHOCYTE 4 % (20-50); MONOCYTE 4 % (0-10); NEUTROPHIL 92 % (42-75); PLATELET ESTIMATE NORMAL (NORMAL); TOTAL CELLS COUNTED 100
--- NOTE | 2018-05-22 11:42 | ED PDOC ---
HPI: SOB/CHF/COPD Time Seen by Provider: 05/22/18 10:17 Chief Complaint (Nursing): Cough, Cold, Congestion Chief Complaint (Provider): Cough, wheezing History Per: Patient History/Exam Limitations: no limitations Onset/Duration Of Symptoms: Days (10) Additional History Per: Patient Additional Complaint(s): 57yo female, with history of asthma, comes to ER for evaluation of persistent wheezing and coughing x 10 days. Patient was evaluated by Dr. Dunn for same, and completed a course of steroids and antibiotics, with no relief of symptoms. She was seen by her PMD Dr. Win as well, and informed to come to ER for further evaluation. She reports chest pain with cough, but denies any fever, chills, headache, weakness. No hemoptysis. No additional medical complaints. PMD: Dr. Win Past Medical History Reviewed: Historical Data, Nursing Documentation, Vital Signs Vital Signs: Last Vital Signs Temp 99.3 F 05/22/18 09:32 Pulse 107 H 05/22/18 09:32 Resp 18 05/22/18 09:32 BP 145/92 H 05/22/18 09:32 Pulse Ox 99 05/22/18 09:32 - Medical History PMH: Anxiety, Arthritis, Asthma (LAST ATTACK ONE MONTH AGO), Bronchitis, COPD, Fibromyalgia, HTN, Hypercholesterolemia, Migraine, Seizures Denies: HIV, Chronic Kidney Disease - Surgical History Surgical History: Endoscopy, Tonsillectomy Other surgeries: mastectomy - Family History Family History: States: Unknown Family Hx - Home Medications Home Medications: Ambulatory Orders Medication Instructions Recorded Fluticasone Furoate [Arnuity 1 puff IH DAILY 10/07/16 Ellipta] Fluticasone/Vilanterol [Breo 1 puff IH DAILY 10/07/16 Ellipta 200-25 Mcg INH] Montelukast [Singulair] 10 mg PO HS 10/07/16 Hydrochlorothiazide [Microzide] 12.5 mg PO DAILY 06/29/17 Levocetirizine Dihydrochloride 10 mg PO HS 06/29/17 [Xyzal] Simvastatin [Zocor] 20 mg PO QPM 06/29/17 Zolpidem [Ambien] 10 mg PO HS 06/29/17 amLODIPine [Norvasc] 5 mg PO DAILY 06/29/17 Albuterol Sulfate [Proventil] 2 mg PO TID 05/22/18 Alprazolam [Xanax] 0.5 mg PO HS PRN 05/22/18 Cholecalciferol [Vitamin D 1000 IU] 1,000 unit PO DAILY 05/22/18 Methocarbamol [Robaxin] 500 mg PO Q12 PRN 05/22/18 Polyethylene Glycol 3350 [Miralax] 17 gm PO BID 05/22/18 Tiotropium [place] [Spiriva 2 puff IH DAILY 05/22/18 Respimat] predniSONE [predniSONE Tab] 10 mg PO DAILY 05/22/18 Oseltamivir Cap [Tamiflu Cap] 75 mg PO BID #8 capsule 05/23/18 - Allergies Allergies/Adverse Reactions: Allergies Allergy/AdvReac Type Severity Reaction Status Date / Time azelastine Allergy ANGIOEDEMA Verified 06/29/17 18:56 dexamethasone [From Decadron] Allergy SWELLING Verified 06/29/17 18:56 dexamethasone sod phosphate Allergy SWELLING Verified 06/29/17 18:56 [From Decadron] levofloxacin [From Levaquin] AdvReac DIARRHEA Verified 06/29/17 18:56 Review of Systems ROS Statement: Except As Marked, All Systems Reviewed And Found Negative Constitutional: Negative for: Fever, Chills, Weakness Cardiovascular: Positive for: Chest Pain (s/p cough) Respiratory: Positive for: Cough, Wheezing. Negative for: Hemoptysis Gastrointestinal: Negative for: Vomiting Physical Exam - Reviewed Nursing Documentation Reviewed: Yes Vital Signs Reviewed: Yes - Physical Exam Appears: Positive for: Non-toxic, Uncomfortable Head Exam: Positive for: ATRAUMATIC, NORMAL INSPECTION, NORMOCEPHALIC Skin: Positive for: Warm Eye Exam: Positive for: EOMI, PERRL ENT: Negative for: Pharyngeal Erythema, Tonsillar Exudate, Tonsillar Swelling Neck: Positive for: Supple Cardiovascular/Chest: Positive for: Tachycardia (regular rate) Respiratory: Positive for: Wheezing. Negative for: Respiratory Distress Pulses-Radial (L): 2+ Pulses-Radial (R): 2+ Gastrointestinal/Abdominal: Positive for: Normal Exam, Soft. Negative for: Tenderness, Guarding, Rebound Back: Positive for: Normal Inspection Extremity: Positive for: Normal ROM. Negative for: Pedal Edema Neurological/Psych: Positive for: Alert, Oriented. Negative for: Motor/Sensory Deficits - Laboratory Results Result Diagrams: 05/23/18 04:55 05/23/18 04:55 Lab Results: Troponin I < 0.0120 ng/mL (0.00-0.120) 05/22/18 10:45 NT-Pro-B Natriuret Pep 52.6 pg/ml (0-900) 05/22/18 10:45 - ECG O2 Sat by Pulse Oximetry: 99 (RA) Pulse Ox Interpretation: Normal Nebulizer Treatments/Peak Flow - Duonebs Number of Bronchodilator Doses given?: 1 - Steroid Treatment Steroid: IV - Clinical Response Clinical Response: Unchanged Medical Decision Making Medical Decision Making: Impression: 57yo female with cough, wheezing Differential: Asthma exacerbation r/o pneumonia, acute bronchitis Plan: CXR Labs Duoneb Solumedrol IV Reassess 1100-- Discussed case with Dr. Dunn, who recommends steroids, duonebs and CXR orders placed as requested. 1236 Patient positive for influenza, Tamiflu 75ml PO given. Scribe Attestation: Documented by Smita Pizano acting as a scribe for Lyndsay Boyer MD. Provider Attestation: All medical record entries made by the Scribe were at my direction and personally dictated by me. I have reviewed the chart and agree that the record accurately reflects my personal performance of the history, physical exam, medical decision making, and the department course for this patient. I have also personally directed, reviewed, and agree with the discharge instructions and disposition. Disposition - Clinical Impression Clinical Impression: Asthma exacerbation, Influenza A - Patient ED Disposition Is Patient to be Admitted: Yes Discussed With : Tim Spain Doctor Will See Patient In The: ED Counseled Patient/Family Regarding: Studies Performed, Diagnosis - Disposition Disposition Time: 12:00 Condition: FAIR - Pt Status Changed To: Hospital Disposition Of: Observation - POA Present On Arrival: None
--- NOTE | 2018-05-22 13:13 | CP.PCM.HP ---
<Carmelita Vargas - Last Filed: 05/22/18 15:29> History of Present Illness - History of Present Illness History of Present Illness: 57 Y/O female with PMH of Asthma, HTN, IBS, Fibromyalgia who presents to the ED with c/o persistent cough and intermittent wheezing for the last 10 days. Patient reports that she started approximately 10 days ago with cold like symptoms, chills, dry cough and some wheezing and was evaluated by her oil rigger Dr Dunn. She reports she completed treatment with antibiotics Augmentin, mucinex and taper down dose of steroids (prednisone currently 10mg QD), with no resolution of her symptoms. She was seen by Dr Win today who instructed her to come to the ED for evaluation. In the ED patient patient tested positive for Influenza B. At present during this encounter patient c/o pleuritic chest pain with coughing, chills, tiredness, and intermittent wheezing. Patient denies other acute medical complaints at this time. Of note patient reports last admission for Asthma exacerbation in May 2016. ROS: 12 systems reviewed and found unremarkable, except as per HPI. PMD: Dr Win Control Center Operator: Dr. Dunn PMH: Asthma, HTN, IBS, Fibromyalgia, Breast Cancer(pt states cured). FMH: parents medical history is unknown to patient. PSH:Tonsilectomy, Hysterectomy, Cholesteatoma of Right ear Sx, (patient reports x4 surgeries Right ear and x3 surgeries Left ear), Sinus surgery. SocialHx: Denies ETOH, Smoking or rect drugs use. ALLERG: Azelastine, Dexamethasone, Levaquin Home MEDS: Reviewed ED Course: VS on arrival: HR 107, BP 145/92, RR 18, O2Sat 99% on RA, Temp 99.3 F Significant labs: positive for Influenza B WBC 14.4 Troponin x1 negative Present on Admission - Present on Admission Any Indicators Present on Admission: No History of DVT/PE: No History of Uncontrolled Diabetes: No Urinary Catheter: No Decubitus Ulcer Present: No Past Patient History - Infectious Disease Hx of Infectious Diseases: None - Past Medical History & Family History Past Medical History?: Yes - Past Social History Smoking Status: Never Smoked - CARDIAC Hx Hypercholesterolemia: Yes Hx Hypertension: Yes - PULMONARY Hx Asthma: Yes (LAST ATTACK ONE MONTH AGO) Hx Bronchitis: Yes Hx Chronic Obstructive Pulmonary Disease (COPD): Yes - NEUROLOGICAL Hx Migraine: Yes Hx Seizures: Yes - HEENT Hx HEENT Problems: No - RENAL Hx Chronic Kidney Disease: No - ENDOCRINE/METABOLIC Hx Endocrine Disorders: No - HEMATOLOGICAL/ONCOLOGICAL Hx Human Immunodeficiency Virus (HIV): No - INTEGUMENTARY Hx Dermatological Problems: No - MUSCULOSKELETAL/RHEUMATOLOGICAL Hx Arthritis: Yes - GASTROINTESTINAL Hx Gastrointestinal Disorders: No - GENITOURINARY/GYNECOLOGICAL Hx Genitourinary Disorders: No - PSYCHIATRIC Hx Anxiety: Yes - SURGICAL HISTORY Hx Tonsillectomy: Yes - ANESTHESIA Hx Anesthesia: Yes Hx Anesthesia Reactions: No Hx Malignant Hyperthermia: No Meds Allergies/Adverse Reactions: Allergies Allergy/AdvReac Type Severity Reaction Status Date / Time azelastine Allergy ANGIOEDEMA Verified 06/29/17 18:56 dexamethasone [From Decadron] Allergy SWELLING Verified 06/29/17 18:56 dexamethasone sod phosphate Allergy SWELLING Verified 06/29/17 18:56 [From Decadron] levofloxacin [From Levaquin] AdvReac DIARRHEA Verified 06/29/17 18:56 Physical Exam - Constitutional Appears: No Acute Distress - Head Exam Head Exam: ATRAUMATIC, NORMOCEPHALIC - Eye Exam Eye Exam: EOMI - ENT Exam ENT Exam: Mucous Membranes Moist - Respiratory Exam Respiratory Exam: Wheezes (Good air entry, diffuse wheezing noted) - Cardiovascular Exam Cardiovascular Exam: REGULAR RHYTHM, +S1, +S2 - GI/Abdominal Exam GI & Abdominal Exam: Soft. absent: Tenderness - Extremities Exam Extremities exam: Negative for: calf tenderness - Neurological Exam Neurological exam: Alert, Oriented x3 - Psychiatric Exam Psychiatric exam: Normal Affect - Skin Skin Exam: Dry, Normal Color, Warm Results - Vital Signs Recent Vital Signs: Last Vital Signs Temp 98.7 F 05/22/18 12:48 Pulse 89 05/22/18 12:48 Resp 20 05/22/18 12:48 BP 124/77 05/22/18 12:48 Pulse Ox 99 05/22/18 12:53 - Labs Result Diagrams: 05/22/18 10:45 05/22/18 10:45 Labs: Laboratory Results - last 24 hr 05/22/18 05/22/18 05/22/18 10:45 10:45 11:45 WBC 14.4 H RBC 5.66 H Hgb 14.6 Hct 45.3 MCV 79.9 L D MCH 25.8 L MCHC 32.3 L RDW 16.3 H Plt Count 381 MPV 7.4 Neut % (Auto) 89.8 H Lymph % (Auto) 5.9 L [place] % (Auto) 4.1 Eos % (Auto) 0.0 Baso % (Auto) 0.2 Neut # (Auto) 13.0 H Lymph # (Auto) 0.8 L [place] # (Auto) 0.6 Eos # (Auto) 0.0 Baso # (Auto) 0.0 Neutrophils % (Manual) 92 H Lymphocytes % (Manual) 4 L Monocytes % (Manual) 4 Platelet Estimate Normal RBC Morphology Normal Sodium 137 Potassium 3.5 L Chloride 96 L Carbon Dioxide 29 Anion Gap 16 BUN 26 H Creatinine 0.6 L Est GFR ( Amer) > 60 Est GFR (Non-Af Amer) > 60 Random Glucose 152 H Calcium 9.8 Troponin I < 0.0120 NT-Pro-B Natriuret Pep 52.6 Influenza Typ A,B (EIA) Pos for influenza b H Assessment & Plan - Assessment and Plan (Free Text) Assessment: 57 Y/O female with PMH of Asthma, HTN, IBS and Fibromyalgia being admitted for evaluation and management of Asthma exacerbation after outpatient treatment failure. Patient positive for Influenza B in ED. Plan: Asthma exacerbation Exacerbation likely secondary to Influenza infection Pulm Consult: Dr. Dunn CXR WNL Oxigen 99 % RA, O2 NC PRN to keep Sat>92% Duoneb unit dose INH Q6h Albuterol INH Q4h PRN SOB Methylprednisolone 40 mg Q12h Singulair 10mg PO HS Tamiflu 75 PO BID x 5 days F/u CBC, BMP HTN C/w HCTZ, amlodipine, zocor Insomnia Ambien 10 mg PO Qhs (home) DVT prophylaxis Lovenox 40 mg SC daily Full code status <SpainTim D - Last Filed: 05/22/18 15:34> Results - Vital Signs Recent Vital Signs: Last Vital Signs Temp 99.6 F 05/22/18 13:59 Pulse 89 05/22/18 12:48 Resp 20 05/22/18 12:48 BP 124/77 05/22/18 12:48 Pulse Ox 99 05/22/18 12:53 - Labs Result Diagrams: 05/22/18 10:45 05/22/18 10:45 Labs: Laboratory Results - last 24 hr 05/22/18 05/22/18 05/22/18 10:45 10:45 11:45 WBC 14.4 H RBC 5.66 H Hgb 14.6 Hct 45.3 MCV 79.9 L D MCH 25.8 L MCHC 32.3 L RDW 16.3 H Plt Count 381 MPV 7.4 Neut % (Auto) 89.8 H Lymph % (Auto) 5.9 L [place] % (Auto) 4.1 Eos % (Auto) 0.0 Baso % (Auto) 0.2 Neut # (Auto) 13.0 H Lymph # (Auto) 0.8 L [place] # (Auto) 0.6 Eos # (Auto) 0.0 Baso # (Auto) 0.0 Neutrophils % (Manual) 92 H Lymphocytes % (Manual) 4 L Monocytes % (Manual) 4 Platelet Estimate Normal RBC Morphology Normal Sodium 137 Potassium 3.5 L Chloride 96 L Carbon Dioxide 29 Anion Gap 16 BUN 26 H Creatinine 0.6 L Est GFR ( Amer) > 60 Est GFR (Non-Af Amer) > 60 Random Glucose 152 H Calcium 9.8 Troponin I < 0.0120 NT-Pro-B Natriuret Pep 52.6 Influenza Typ A,B (EIA) Pos for influenza b H Attending/Attestation - Attestation I have personally seen and examined this patient.: Yes I have fully participated in the care of the patient.: Yes I have reviewed all pertinent clinical information: Yes Notes (Text): 05/22/18 15:32 Patient seen and examined with resident. Case discussed and agreed with assessment and plan of management. Patient appeared breathing comfortably but still wheezing in spite of receiving bronchodilators and steroid.
[2018-05-22] MEDS ORDERED: Albuterol-Ipratrop 3 mg / 0.5 (3 ml) UD INH PRN (13:21)
[2018-05-22] MEDS ORDERED: Albuterol 0.083% Inhal Sol (2.5 mg/3 mL) UD INH PRN (13:22)
--- NOTE | 2018-05-22 15:40 | RAD ---
Date of service: 05/22/2018 HISTORY: dyspnea cough COMPARISON: 10/26/2017. TECHNIQUE: Chest PA and lateral FINDINGS: LUNGS: No active pulmonary disease. PLEURA: No significant pleural effusion identified. No pneumothorax apparent. CARDIOVASCULAR: No aortic atherosclerotic calcification present. Normal cardiac size. No pulmonary vascular congestion. OSSEOUS STRUCTURES: No significant abnormalities. VISUALIZED UPPER ABDOMEN: Normal. OTHER FINDINGS: None. IMPRESSION: No active disease. No significant interval change compared to the prior examination(s).
[2018-05-22 16:52] VITALS: RESP 18
--- NOTE | 2018-05-22 17:21 | CARD ---
APPROVED REPORT Date of service: 05/22/2018 EKG Measurement Heart [id number] <Conclusion> Normal sinus rhythm Possible Left atrial enlargement Left axis deviation Poor R wave progression in Precordial leads Abnormal ECG
[2018-05-22 19:34] VITALS: BMI 26.6
[2018-05-22] MEDS: MethylPREDNISolone 40 mg Vial IVP SCH (20:42)
[2018-05-22] MEDS: POLYETHYLENE GLYCOL 3350 17 GM/Dose PACKET PO SCH (20:44)
[2018-05-22] MEDS ORDERED: methylPREDNISolone 40 MG in Sodium Chloride 0.9% 50 ML IVPB SCH (21:00)
[2018-05-22] MEDS: Albuterol 0.083% Inhal Sol (2.5 mg/3 mL) UD INH SCH (23:59)
[2018-05-23] MEDS: Albuterol 0.083% Inhal Sol (2.5 mg/3 mL) UD INH SCH ×3 (03:57→12:15)
[2018-05-23 05:21] LABS: BASO % 0.3 % (0.0-2.0); HEMOGLOBIN 14.6 g/dL (12.0-16.0); LYMPH # 0.7 K/uL (1.0-4.3); LYMPH % 5.5 % (20.0-40.0); MEAN CELL VOLUME 80.1 fl (81.0-99.0); MEAN CORPUSCULAR HEMOGLOBIN 25.4 pg (27.0-31.0); MEAN CORPUSCULAR HGB CONC 31.7 g/dL (33.0-37.0); MEAN PLATELET VOLUME 7.1 fl (7.2-11.7); MONO # 0.3 K/uL (0.0-0.8); MONO % 2.4 % (0.0-10.0); NEUT # 11.6 K/uL (1.8-7.0); NEUT % 91.8 % (50.0-75.0); NRBC % 0.1 % (0.0-0.0); PLATELET COUNT 374 K/uL (130-400); RBC 5.76 Mil/uL (3.80-5.20); RED CELL DISTRIBUTION WIDTH 16.5 % (11.5-14.5); WHITE BLOOD COUNT 12.7 K/uL (4.8-10.8)
[2018-05-23 05:26] LABS: BLOOD UREA NITROGEN 22 mg/dl (7-17); GFR NON-AFRICAN AMERICAN > 60
[2018-05-23 07:52] VITALS: BP 124/83; PULSE 89; TEMP 97.7; O2SAT 99
[2018-05-23] MEDS: POLYETHYLENE GLYCOL 3350 17 GM/Dose PACKET PO SCH (08:06)
[2018-05-23] MEDS: MethylPREDNISolone 40 mg Vial IVP SCH (08:07)
[2018-05-23 08:46] LABS: ANISOCYTOSIS SLIGHT; BANDS 2 % (0-2); LYMPHOCYTE 9 % (20-50); MONOCYTE 2 % (0-10); MYELOCYTE 1 % (0-0); NEUTROPHIL 86 % (42-75); PLATELET ESTIMATE NORMAL (NORMAL); TOTAL CELLS COUNTED 100
[2018-05-23] MEDS ORDERED: Enoxaparin 40 mg Syringe SC SCH (09:00)
[2018-05-23] MEDS ORDERED: TIOTROPIUM BROMIDE IH SCH (09:00)
[2018-05-23] MEDS ORDERED: Cholecalciferol 1,000 INTLU TAB PO SCH (09:00)
--- NOTE | 2018-05-23 09:07 | CP.PCM.CON ---
History of Present Illness - History of Present Illness History of Present Illness: This 57 year old female is well known to me from the outpatient setting. She is known to have persistent-moderately severe asthma for which she has been receiving Fasenra injections as well as allergen desensitization. She has developed a recent exacerbation of her asthma symptoms associated with sinusitis and bronchitis findings which has been poorly responsive to outpatient increase in oral corticosteroids and antibiotic therapy. She was advised to come to the emergency room yesterday because of continued symptoms and found to be positive on testing for influenza B. She vp purchasing treatment for her bronchospasm with aerosol therapy and parenteral solu-medrol. She was also begun on oseltamivir capsules. Today she is feeling significantly improved on this regimen and there is discussion of dicharge to home. On exam she appears improved without audible wheezing or rales, no bronchial breath sounds or rhonchi are appreciated. She does have oral thrush developing on the soft palate and tonsillar pillars. She is anxious for return to home and may be discharged on her usual home regimen plus oseltamivir 75MG BID for 5 days. Prednisone can be given at 20MG BID with a rapid decreasing schedule of 5MG less every day as tolerated. She will also require clotimazole lozenges until her thrush resolves. She has been advised to remain home from work for the remainder of this week and see me on Tuesday in the office with expected return to work on Tuesday. Review of Systems - Review of Systems All systems: reviewed and no additional remarkable complaints except - Constitutional Constitutional: Chills, Fatigue, Headache - EENT Ears: Ear Discharge Nose/Mouth/Throat: Nasal Congestion, Sinus Pain - Respiratory Respiratory: Cough, Dyspnea, Wheezing, Chest Congestion - Musculoskeletal Musculoskeletal: Myalgias Past Patient History - Infectious Disease Hx of Infectious Diseases: None - Past Medical History & Family History Past Medical History?: Yes - Past Social History Smoking Status: Never Smoked Chewing Tobacco Use: No Cigar Use: No Alcohol: Social Drugs: Denies Home Situation {Lives}: Alone - CARDIAC Hx Cardiac Disorders: No - PULMONARY Hx Asthma: Yes Hx Bronchitis: Yes - NEUROLOGICAL Hx Migraine: Yes Hx Seizures: Yes (medication induced-remote) - HEENT Other/Comment: Cholesteatoma right ear - RENAL Hx Chronic Kidney Disease: No - ENDOCRINE/METABOLIC Hx Endocrine Disorders: No - HEMATOLOGICAL/ONCOLOGICAL Hx Human Immunodeficiency Virus (HIV): No - INTEGUMENTARY Hx Dermatological Problems: No - MUSCULOSKELETAL/RHEUMATOLOGICAL Hx Arthritis: Yes Hx Falls: No - GASTROINTESTINAL Hx Gastritis: Yes Hx Gastroesophageal Reflux: Yes Hx Irritable Bowel: Yes - GENITOURINARY/GYNECOLOGICAL Hx Genitourinary Disorders: No - PSYCHIATRIC Hx Anxiety: Yes - SURGICAL HISTORY Hx Surgeries: Yes Hx Hysterectomy: Yes Hx Tonsillectomy: Yes Other/Comment: Benign breast nodules-right - ANESTHESIA Hx Anesthesia: Yes Hx Anesthesia Reactions: No Hx Malignant Hyperthermia: No Meds Allergies/Adverse Reactions: Allergies Allergy/AdvReac Type Severity Reaction Status Date / Time azelastine Allergy ANGIOEDEMA Verified 06/29/17 18:56 dexamethasone [From Decadron] Allergy SWELLING Verified 06/29/17 18:56 dexamethasone sod phosphate Allergy SWELLING Verified 06/29/17 18:56 [From Decadron] levofloxacin [From Levaquin] AdvReac DIARRHEA Verified 06/29/17 18:56 - Medications Medications: Current Medications Acetaminophen (Tylenol 325mg Tab) 650 mg PO Q6 PRN PRN Reason: Fever >100.4 F Albuterol Sulfate (Albuterol 0.083% Inhal Traci (2.5 Mg/3 Ml) Ud) 2.5 mg INH RQ4 [facility] Last Admin: 05/23/18 08:02 Dose: 2.5 mg Albuterol/Ipratropium (Duoneb 3 Mg/0.5 Mg (3 Ml) Ud) 3 ml INH RQID [facility] Amlodipine Besylate (Norvasc) 5 mg PO DAILY [facility] Last Admin: 05/23/18 08:07 Dose: 5 mg Atorvastatin Calcium (Lipitor) 40 mg PO QPM [facility] Last Admin: 05/22/18 21:01 Dose: 40 mg Cholecalciferol (Vitamin D) 1,000 intlu PO DAILY [facility] Last Admin: 05/23/18 08:09 Dose: 1,000 intlu Enoxaparin Sodium (Lovenox) 40 mg SC DAILY [facility]; Protocol Last Admin: 05/23/18 08:05 Dose: 40 mg Hydrochlorothiazide (Microzide) 12.5 mg PO DAILY [facility] Last Admin: 05/23/18 08:06 Dose: 12.5 mg Loratadine (Claritin) 10 mg PO HS [facility] Last Admin: 05/22/18 21:01 Dose: 10 mg Methylprednisolone (Solu-Medrol) 40 mg IVP Q12 [facility] Last Admin: 05/23/18 08:07 Dose: 40 mg Montelukast Sodium (Singulair) 10 mg PO HS [facility] Last Admin: 05/22/18 21:00 Dose: 10 mg Ondansetron HCl (Zofran Inj) 4 mg IVP Q6 PRN PRN Reason: Nausea/Vomiting Oseltamivir Phosphate (Tamiflu Cap) 75 mg PO BID [facility]; Protocol Last Admin: 05/23/18 08:08 Dose: 75 mg Polyethylene Glycol (Miralax) 17 gm PO BID [facility] Last Admin: 05/23/18 08:06 Dose: 17 gm Zolpidem Tartrate (Ambien) 5 mg PO HS [facility] Last Admin: 05/22/18 21:00 Dose: 5 mg Physical Exam - Additional Findings Additional findings: Thrush is noted on the soft palate and tonsillar pillars. Nares are patent bilaterally. Neck is supple and trachea is midline. No palpable lymphadenopathy. No dullness on chest percussion. No audible wheezing or bronchial breathing. Breath sounds are well heard bilaterally w/o rales. Heart sounds are well heard, regular rhythm, no murmur. Mild flushed facies, no rashes or ecchymoses. Extremities are warm and pink, no dependant edema. Results - Vital Signs Recent Vital Signs: Last Vital Signs Temp 97.7 F 05/23/18 07:52 Pulse 89 05/23/18 08:07 Resp 18 05/23/18 07:52 BP 124/83 05/23/18 08:07 Pulse Ox 99 05/23/18 07:52 - Labs Result Diagrams: 05/23/18 04:55 05/23/18 04:55 Labs: Laboratory Results - last 24 hr 05/22/18 05/22/18 05/22/18 10:45 10:45 11:45 WBC 14.4 H RBC 5.66 H Hgb 14.6 Hct 45.3 MCV 79.9 L D MCH 25.8 L MCHC 32.3 L RDW 16.3 H Plt Count 381 MPV 7.4 Neut % (Auto) 89.8 H Lymph % (Auto) 5.9 L Kerr % (Auto) 4.1 Eos % (Auto) 0.0 Baso % (Auto) 0.2 Neut # (Auto) 13.0 H Lymph # (Auto) 0.8 L Kerr # (Auto) 0.6 Eos # (Auto) 0.0 Baso # (Auto) 0.0 Neutrophils % (Manual) 92 H Band Neutrophils % Lymphocytes % (Manual) 4 L Monocytes % (Manual) 4 Myelocytes % Platelet Estimate Normal RBC Morphology Normal Anisocytosis (manual) Sodium 137 Potassium 3.5 L Chloride 96 L Carbon Dioxide 29 Anion Gap 16 BUN 26 H Creatinine 0.6 L Est GFR ( Amer) > 60 Est GFR (Non-Af Amer) > 60 Random Glucose 152 H Calcium 9.8 Troponin I < 0.0120 NT-Pro-B Natriuret Pep 52.6 Influenza Typ A,B (EIA) Pos for influenza b H 05/23/18 05/23/18 04:55 04:55 WBC 12.7 H RBC 5.76 H Hgb 14.6 Hct 46.1 MCV 80.1 L MCH 25.4 L MCHC 31.7 L RDW 16.5 H Plt Count 374 MPV 7.1 L Neut % (Auto) 91.8 H Lymph % (Auto) 5.5 L Kerr % (Auto) 2.4 Eos % (Auto) 0.0 Baso % (Auto) 0.3 Neut # (Auto) 11.6 H Lymph # (Auto) 0.7 L Kerr # (Auto) 0.3 Eos # (Auto) 0.0 Baso # (Auto) 0.0 Neutrophils % (Manual) 86 H Band Neutrophils % 2 Lymphocytes % (Manual) 9 L Monocytes % (Manual) 2 Myelocytes % 1 H Platelet Estimate Normal RBC Morphology Anisocytosis (manual) Slight Sodium 134 Potassium 4.0 Chloride 94 L Carbon Dioxide 33 H Anion Gap 11 BUN 22 H Creatinine 0.6 L Est GFR ( Amer) > 60 Est GFR (Non-Af Amer) > 60 Random Glucose 213 H Calcium 10.0 Troponin I NT-Pro-B Natriuret Pep Influenza Typ A,B (EIA) Assessment & Plan (1) Influenza B Status: Acute Priority: High (2) Influenzal bronchitis Status: Acute Priority: High (3) Exacerbation of asthma Status: Acute Priority: High - Assessment and Plan (Free Text) Plan: See above in the history. - Date & Time Date: 05/23/18 Time: 09:07
--- NOTE | 2018-05-23 10:40 | CP.PCM.DIS ---
<Hayleeshine JenkinsCarmelita - Last Filed: 05/23/18 13:59> Provider - Provider Date of Admission: 05/22/18 12:38 Attending physician: Tim Spain MD Consults: 05/22/18 11:29 Pulmonology Consult Stat Comment: Consulting Provider: Devonte Dunn Consulting Physician: Devonte Dunn Reason for Consult: asthma exacerbation Time Spent in preparation of Discharge (in minutes): 33 Diagnosis - Discharge Diagnosis (1) Exacerbation of asthma Status: Acute Priority: High (2) Influenza B Status: Acute Priority: High Hospital Course - Lab Results Lab Results: Most Recent Lab Values WBC 12.7 K/uL (4.8-10.8) H 05/23/18 04:55 RBC 5.76 Mil/uL (3.80-5.20) H 05/23/18 04:55 Hgb 14.6 g/dL (12.0-16.0) 05/23/18 04:55 Hct 46.1 % (34.0-47.0) 05/23/18 04:55 MCV 80.1 fl (81.0-99.0) L 05/23/18 04:55 MCH 25.4 pg (27.0-31.0) L 05/23/18 04:55 MCHC 31.7 g/dL (33.0-37.0) L 05/23/18 04:55 RDW 16.5 % (11.5-14.5) H 05/23/18 04:55 Plt Count 374 K/uL (130-400) 05/23/18 04:55 MPV 7.1 fl (7.2-11.7) L 05/23/18 04:55 Neut % (Auto) 91.8 % (50.0-75.0) H 05/23/18 04:55 Lymph % (Auto) 5.5 % (20.0-40.0) L 05/23/18 04:55 [place] % (Auto) 2.4 % (0.0-10.0) 05/23/18 04:55 Eos % (Auto) 0.0 % (0.0-4.0) 05/23/18 04:55 Baso % (Auto) 0.3 % (0.0-2.0) 05/23/18 04:55 Neut # (Auto) 11.6 K/uL (1.8-7.0) H 05/23/18 04:55 Lymph # (Auto) 0.7 K/uL (1.0-4.3) L 05/23/18 04:55 [place] # (Auto) 0.3 K/uL (0.0-0.8) 05/23/18 04:55 Eos # (Auto) 0.0 K/uL (0.0-0.7) 05/23/18 04:55 Baso # (Auto) 0.0 K/uL (0.0-0.2) 05/23/18 04:55 Neutrophils % (Manual) 86 % (42-75) H 05/23/18 04:55 Band Neutrophils % 2 % (0-2) 05/23/18 04:55 Lymphocytes % (Manual) 9 % (20-50) L 05/23/18 04:55 Monocytes % (Manual) 2 % (0-10) 05/23/18 04:55 Myelocytes % 1 % (0-0) H 05/23/18 04:55 Platelet Estimate Normal (NORMAL) 05/23/18 04:55 RBC Morphology Normal (NORMAL) 05/22/18 10:45 Anisocytosis (manual) Slight 05/23/18 04:55 Sodium 134 mmol/l (132-148) 05/23/18 04:55 Potassium 4.0 MMOL/L (3.6-5.0) 05/23/18 04:55 Chloride 94 mmol/L (98-107) L 05/23/18 04:55 Carbon Dioxide 33 mmol/L (22-30) H 05/23/18 04:55 Anion Gap 11 (10-20) 05/23/18 04:55 BUN 22 mg/dl (7-17) H 05/23/18 04:55 Creatinine 0.6 mg/dl (0.7-1.2) L 05/23/18 04:55 Est GFR ( Amer) > 60 05/23/18 04:55 Est GFR (Non-Af Amer) > 60 05/23/18 04:55 Random Glucose 213 mg/dL (65-105) H 05/23/18 04:55 Calcium 10.0 mg/dL (8.4-10.2) 05/23/18 04:55 Troponin I < 0.0120 ng/mL (0.00-0.120) 05/22/18 10:45 NT-Pro-B Natriuret Pep 52.6 pg/ml (0-900) 05/22/18 10:45 Influenza Typ A,B (EIA) Pos for influenza b (NEGATIVE) H 05/22/18 11:45 - Hospital Course Hospital Course: 57 Y/O female with PMH of Asthma, HTN, IBS and Fibromyalgia admitted to [facility] for evaluation and management of Asthma exacerbation after outpatient treatment failure. Patient positive for Influenza B in ED. During hospital course patient received IV setroids, Aerosol treatment plus Tamiflu 75 PO BID. On exam patient is significantly improved, clear to auscultation with good air entry, no audible wheezing or rales, no bronchial breath sounds or rhonchi noted, thrush is noted developing on the soft palate. Patient today is found stable for DC home with outpatient follow up by PMD and regroover. Patient will be DC home with OP treatment with Tamiflu 75 mg BID to complte 5 days, and clotrimazole lozenges 10 mg PO 5x/day x 7 days for thrush Discharge Exam - Head Exam Head Exam: ATRAUMATIC, NORMOCEPHALIC - Eye Exam Eye Exam: EOMI - ENT Exam ENT Exam: Mucous Membranes Moist Additional comments: oral trush noted - Respiratory Exam Respiratory Exam: Clear to PA & Lateral. absent: Wheezes - Cardiovascular Exam Cardiovascular Exam: REGULAR RHYTHM, +S1, +S2 - GI/Abdominal Exam GI & Abdominal Exam: Soft - Neurological Exam Neurological exam: Alert, Oriented x3 - Skin Skin Exam: Normal Color, Warm Discharge Plan - Discharge Medications Prescriptions: Clotrimazole [Mycelex Saige] 10 mg PO 5XD 7 Days #35 willow Oseltamivir Cap [Tamiflu Cap] 75 mg PO BID #8 capsule - Follow Up Plan Condition: FAIR Disposition: HOME/ ROUTINE Instructions: Asthma, Adult (DC), Flu, Adult (DC) Additional Instructions: follow up with and in 1 week Referrals: Charles Win MD [Staff Provider] - Devonte Dunn MD [Staff Provider] - <Tim Spain - Last Filed: 05/23/18 14:30> Provider - Provider Date of Admission: 05/22/18 12:38 Attending physician: Tim Spain MD Consults: 05/22/18 11:29 Pulmonology Consult Stat Comment: Consulting Provider: Devonte Dunn Consulting Physician: Devonte Dunn Reason for Consult: asthma exacerbation Hospital Course - Lab Results Lab Results: Micro Results 05/22/18 10:45 Blood Blood Culture - Preliminary NO GROWTH AFTER 24 HOURS Most Recent Lab Values WBC 12.7 K/uL (4.8-10.8) H 05/23/18 04:55 RBC 5.76 Mil/uL (3.80-5.20) H 05/23/18 04:55 Hgb 14.6 g/dL (12.0-16.0) 05/23/18 04:55 Hct 46.1 % (34.0-47.0) 05/23/18 04:55 MCV 80.1 fl (81.0-99.0) L 05/23/18 04:55 MCH 25.4 pg (27.0-31.0) L 05/23/18 04:55 MCHC 31.7 g/dL (33.0-37.0) L 05/23/18 04:55 RDW 16.5 % (11.5-14.5) H 05/23/18 04:55 Plt Count 374 K/uL (130-400) 05/23/18 04:55 MPV 7.1 fl (7.2-11.7) L 05/23/18 04:55 Neut % (Auto) 91.8 % (50.0-75.0) H 05/23/18 04:55 Lymph % (Auto) 5.5 % (20.0-40.0) L 05/23/18 04:55 [place] % (Auto) 2.4 % (0.0-10.0) 05/23/18 04:55 Eos % (Auto) 0.0 % (0.0-4.0) 05/23/18 04:55 Baso % (Auto) 0.3 % (0.0-2.0) 05/23/18 04:55 Neut # (Auto) 11.6 K/uL (1.8-7.0) H 05/23/18 04:55 Lymph # (Auto) 0.7 K/uL (1.0-4.3) L 05/23/18 04:55 [place] # (Auto) 0.3 K/uL (0.0-0.8) 05/23/18 04:55 Eos # (Auto) 0.0 K/uL (0.0-0.7) 05/23/18 04:55 Baso # (Auto) 0.0 K/uL (0.0-0.2) 05/23/18 04:55 Neutrophils % (Manual) 86 % (42-75) H 05/23/18 04:55 Band Neutrophils % 2 % (0-2) 05/23/18 04:55 Lymphocytes % (Manual) 9 % (20-50) L 05/23/18 04:55 Monocytes % (Manual) 2 % (0-10) 05/23/18 04:55 Myelocytes % 1 % (0-0) H 05/23/18 04:55 Platelet Estimate Normal (NORMAL) 05/23/18 04:55 RBC Morphology Normal (NORMAL) 05/22/18 10:45 Anisocytosis (manual) Slight 05/23/18 04:55 Sodium 134 mmol/l (132-148) 05/23/18 04:55 Potassium 4.0 MMOL/L (3.6-5.0) 05/23/18 04:55 Chloride 94 mmol/L (98-107) L 05/23/18 04:55 Carbon Dioxide 33 mmol/L (22-30) H 05/23/18 04:55 Anion Gap 11 (10-20) 05/23/18 04:55 BUN 22 mg/dl (7-17) H 05/23/18 04:55 Creatinine 0.6 mg/dl (0.7-1.2) L 05/23/18 04:55 Est GFR ( Amer) > 60 05/23/18 04:55 Est GFR (Non-Af Amer) > 60 05/23/18 04:55 Random Glucose 213 mg/dL (65-105) H 05/23/18 04:55 Calcium 10.0 mg/dL (8.4-10.2) 05/23/18 04:55 Troponin I < 0.0120 ng/mL (0.00-0.120) 05/22/18 10:45 NT-Pro-B Natriuret Pep 52.6 pg/ml (0-900) 05/22/18 10:45 Influenza Typ A,B (EIA) Pos for influenza b (NEGATIVE) H 05/22/18 11:45 Attending/Attestation - Attestation I have personally seen and examined this patient.: Yes I have fully participated in the care of the patient.: Yes I have reviewed all pertinent clinical information, including history, physical exam and plan: Yes Notes (Text): 05/23/18 14:26 Patient seen and examined with resident. Case discussed and agreed with assessment. Patient appeared better and felt better without complaint. Patient was di scharged in stable condition.
[2018-05-23] MEDS ORDERED: Albuterol-Ipratrop 3 mg / 0.5 (3 ml) UD INH SCH (12:00)
== END 2018-05-23 13:30 | disposition home or self-care (01) ==
LOC: H.ER 09:30 → H.ERHOLD 12:38 → INTOOBSV 12:38 → H.TEL 16:39
DX: J45.901 Unspecified asthma with (acute) exacerbation (principal); K21.9 Gastro-esophageal reflux disease without esophagitis; K58.9 Irritable bowel syndrome, unspecified; M79.7 Fibromyalgia; Z90.710 Acquired absence of both cervix and uterus; B37.9 Candidiasis, unspecified; F41.9 Anxiety disorder, unspecified; G43.909 Migraine, unspecified, not intractable, without status migrainosus; H71.91 Unspecified cholesteatoma, right ear; K29.70 Gastritis, unspecified, without bleeding; M19.90 Unspecified osteoarthritis, unspecified site; R56.9 Unspecified convulsions; Z79.899 Other long term (current) drug therapy; B37.0 Candidal stomatitis; E78.00 Pure hypercholesterolemia, unspecified; I10 Essential (primary) hypertension; J10.1 Influenza due to other identified influenza virus with other respiratory manifestations; J44.9 Chronic obstructive pulmonary disease, unspecified
CPT/HCPCS: 36415; 71046; 80048; 83880; 84484; 85025; 87040; 87804; 93005; 94640; 96374; 99284; G0378; J1650; J2920; J2930